=== PATIENT | female | born 1940 | race Caucasian/White ===

== ENCOUNTER 2022-01-25 11:52 | Emergency (ER) | payer OTHER ==
[2022-01-25 12:29] LABS: Absolute Lymphocytes (CBC) 1.6 K/uL (0.7-4.9); Hematocrit 42.7 % (36.0-45.0); Lymphocytes % 16.1 % (15.3-44.8); MPV 8.1 fL (7.6-11.3); RBC Red Blood Cell Count 5.01 M/uL (3.86-4.86)
[2022-01-25 12:38] LABS: Protime INR 0.95
[2022-01-25 12:47] LABS: Albumin 3.2 g/dL (3.4-5.0); Bilirubin Direct 0.2 mg/dL (0-0.2); Bilirubin Total 0.5 mg/dL (0.2-1.0); CKMB Creatine Kinase MB 2.8 ng/mL (1.0-3.6); Protein, Total 7.4 g/dL (6.4-8.2)
[2022-01-25 12:48] LABS: Magnesium 2.1 mg/dL (1.8-2.4); Potassium 3.7 mmol/L (3.5-5.1)
[2022-01-25] MEDS ORDERED: IPRATROPIUM BROM 0.5MG/2.5ML ONE (13:04)
[2022-01-25] MEDS ORDERED: METHYLPREDNISOLONE 125 MG INJ ONE (13:04)
[2022-01-25] MEDS ORDERED: NA CHLORIDE 0.9% 250 ML ONE (13:04)
[2022-01-25] MEDS ORDERED: ALBUTEROL 2.5 MG/3 ML NEB SOL ONE (13:04)
[2022-01-25] MEDS ORDERED: AZITHROMYCIN 500 MG INJ IVPB ONE (13:04)
--- NOTE | 2022-01-25 13:04 | RAD REPORT ---
EXAM DESCRIPTION: RAD - Chest Single View - 01/25/2022 12:54 pm CLINICAL HISTORY: CONGESTION Chest pain. COMPARISON: No comparisons FINDINGS: Portable technique limits examination quality. Extensive bilateral pulmonary opacities are present which may represent pneumonia or pulmonary edema. The heart is mildly enlarged in size. The left humeral prosthesis.
[2022-01-25 13:33] LABS: SARS-COV-2 RT PCR NEGATIVE (NEGATIVE)
[2022-01-25] MEDS ORDERED: FUROSEMIDE 40 MG/4 ML VIAL ONE (14:05)
--- NOTE | 2022-01-25 14:26 | EDPHYS ---
Physician Documentation [facility] Name: Teresita Holm Age: 81 yrs Sex: Female : 1940 Arrival Date: 01/25/2022 Time: 11:55 Bed 4 Private MD: ED Physician Prince Montoya HPI: 01/25 12:46 This 81 yrs old Female presents to ER via Wheelchair with complaints of Low O2. ma2 12:46 81 years old female history of COPD on home oxygen take steroid daily for the last ma2 week, patient also has CHF mild, presents with shortness of breath for 2 months, patient said that her shortness of breath has not changed or gotten worse however daughter advised her to come here because her saturation has been in the low 80s while she is on oxygen. Of note patient also has cough with clear sputum production for the last 2 months, no chest pain or fever, no lower extremity edema. Historical: - Home Meds: 12:11 Metoprolol Tartrate Oral [Active]; albuterol sulfate Oral [Active]; vg1 losartan-hydrochlorothiazide oral [Active]; Potassium Chloride Oral [Active]; atorvastatin oral [Active]; Isosorbide Dinitrate Oral [Active]; - PMHx: 12:11 Congestive heart failure; Myocardial infarction; Chronic obstructive lung disease; vg1 Osteoporosis; - Immunization history:: Client reports receiving the 2nd dose of the Covid vaccine. - Social history:: Smoking status: Patient/guardian denies using tobacco, the patient reports quitting approximately 33 years ago. - Family history:: not pertinent. ROS: 12:46 Constitutional: Negative for fever, chills, and weight loss. ma2 12:46 All other systems are negative. Exam: 12:46 Constitutional: This is a well developed, well nourished patient who is awake, alert, ma2 and in no acute distress. Head/Face: Normocephalic, atraumatic. Eyes: Pupils equal round and reactive to light, extra-ocular motions intact. Lids and lashes normal. Conjunctiva and sclera are non-icteric and not injected. Cornea within normal limits. Periorbital areas with no swelling, redness, or edema. ENT: Nares patent. No nasal discharge, no septal abnormalities noted. Tympanic membranes are normal and external auditory canals are clear. Oropharynx with no redness, swelling, or masses, exudates, or evidence of obstruction, uvula midline. Mucous membranes moist. Neck: Trachea midline, no thyromegaly or masses palpated, and no cervical lymphadenopathy. Supple, full range of motion without nuchal rigidity, or vertebral point tenderness. No Meningismus. Chest/axilla: Normal chest wall appearance and motion. Nontender with no deformity. No lesions are appreciated. Cardiovascular: Regular rate and rhythm with a normal S1 and S2. No gallops, murmurs, or rubs. Normal PMI, no JVD. No pulse deficits. Respiratory: Saturation was mid 80s on nasal cannula, patient has expiratory wheezes and rails basal bilaterally, wheeze or expiratory, there is no rhonchi's, not using accessory muscles otherwise patient is comfortable. Patient is at facemask oxygen at this time Abdomen/GI: Soft, non-tender, with normal bowel sounds. No distension or tympany. No guarding or rebound. No evidence of tenderness throughout. Back: No spinal tenderness. No costovertebral tenderness. Full range of motion. Vital Signs: 12:09 BP 151 / 83; Pulse 94; Resp 20; Pulse Ox 98% on Non-rebreather mask; Weight 54.43 kg; vg1 Height 5 ft. 1 in. (154.94 cm); Pain 0/10; 13:00 BP 123 / 81; Pulse 88; Resp 25; Pulse Ox 100% on 10% Non-rebreather mask; ww 14:11 BP 110 / 62; Pulse 105; Resp 24; Pulse Ox 92% on 5 lpm NC; ww 12:09 Body Mass Index 22.67 (54.43 kg, 154.94 cm) vg1 MDM: 12:00 Patient medically screened. ma2 12:46 Differential diagnosis: Anemia Anxiety Reaction asthma, Bronchitis reactive airway ma2 disease. 14:23 Data reviewed: vital signs, nurses notes, lab test result(s), radiologic studies. ma2 Counseling: I had a detailed discussion with the patient and/or guardian regarding: the historical points, exam findings, and any diagnostic results supporting the discharge/admit diagnosis, the presence of at least one elevated blood pressure reading (>120/80) during this emergency department visit, lab results, radiology results, the need for further work-up and treatment in the hospital. Response to treatment: the patient's symptoms have markedly improved after treatment, Is a pneumonia bilateral on chest x-ray, and pulmonary edema, of note patient has history of CHF she is on home oxygen, at this time we were able to wean down oxygen to 5 L via nasal cannula, sats is 94% patient is breathing well not respiratory distress. However, she does not have a primary care doctor, given her age and pneumonia increased oxygen requirement I recommended admission, however patient declined she said that she lives close by and she is not back in her usual condition, she stated that she will take steroid antibiotics and she will return to ER for admission if her symptom does not improve or deteriorate. Counseled her about her risk of leaving despite her condition she may have increased CO2 she may get confused and pass out, she understand the risks that include worsening of her pneumonia, and , patient insist on leaving the hospital at this time. 01/25 12:01 Order name: BMP; Complete Time: 13:39 [facility] 01/25 12:01 Order name: Blood Culture Adult (2) [facility] 01/25 12:01 Order name: CBC with Diff; Complete Time: 13:39 [facility] 01/25 12:01 Order name: CPK; Complete Time: 13:39 [facility] 01/25 12:01 Order name: Ckmb; Complete Time: 13:39 [facility] 01/25 12:01 Order name: D-Dimer; Complete Time: 13:39 k[facility]01/25 12:01 Order name: Hepatic Function; Complete Time: 13:39 [facility] 01/25 12:01 Order name: Lipase; Complete Time: 13:39 [facility] 01/25 12:01 Order name: Magnesium; Complete Time: 13:39 [facility] 01/25 12:01 Order name: NT PRO-BNP; Complete Time: 13:39 [facility] 01/25 12:01 Order name: PT-INR; Complete Time: 13:39 [facility] 01/25 12:01 Order name: Ptt, Activated; Complete Time: 13:39 [facility] 01/25 12:01 Order name: XRAY CXR (1 view); Complete Time: 13:39 [facility] 01/25 12:01 Order name: EKG; Complete Time: 12:02 [facility] 01/25 12:01 Order name: Cardiac monitoring; Complete Time: 12:21 [facility] 01/25 12:01 Order name: EKG - Nurse/Tech; Complete Time: 12:33 [facility] 01/25 12:01 Order name: IV Saline Lock; Complete Time: 12:21 [facility] 01/25 12:01 Order name: Labs collected and sent; Complete Time: 12:21 [facility] 01/25 12:01 Order name: O2 Per Protocol; Complete Time: 12:21 [facility] 01/25 12:01 Order name: O2 Sat Monitoring; Complete Time: 12: [facility] 01/25 12:22 Order name: COVID-19/FLU A+B (Document "Date of Onset" if Symptomatic); Complete Time: ww 13:39 Administered Medications: 13:11 Drug: Albuterol 2.5 mg Route: Inhalation; jg9 13:11 Drug: AtroVENT (ipratropium) Aerosol 0.5 mg Route: Inhalation; jg9 13:17 Drug: SOLU-Medrol (methylPrednisoLONE) 125 mg Route: IVP; Site: right antecubital; jg9 14:06 Drug: Lasix (furosemide) 40 mg Route: IVP; Site: right antecubital; ww Disposition Summary: 01/25/22 14:25 Discharge Ordered Location: Home ma2 Condition: Stable ma2 Diagnosis - Other pneumonia, unspecified organism ma2 - Unspecified combined systolic (congestive) and diastolic (congestive) heart failure ma2 Followup: ma2 - With: Private Physician - When: Tomorrow - Reason: If symptoms return, Continuance of care Discharge Instructions: - Discharge Summary Sheet ma2 - Community-Acquired Pneumonia, Adult ma2 Forms: - Medication Reconciliation Form ma2 - Thank You Letter ma2 - Antibiotic Education ma2 - Prescription Opioid Use ma2 Prescriptions: - Tessalon Perles 100 mg Oral Capsule - take 1 capsule by ORAL route every 8 hours As needed; 15 capsule; Refills: 0, ma2 Product Selection Permitted - Zithromax Z-Cristhian 250 mg Oral Tablet - take 1 tablet by ORAL route as directed for 5 days Day 1 - take two (2) tablets ma2 one time. Day 2, 3, 4 , 5 take one (1) tablet once daily.; 6 tablet; Refills: 0, Product Selection Permitted - Medrol (Cristhian) 4 mg Oral Tablets, Dose Pack - take 1 tablet by ORAL route as directed - follow package instructions; 1 ma2 packet; Refills: 0, Product Selection Permitted Signatures: Dispatcher [employer] EDMS Prince Montoya MD MD ma2 Nahomi Hardy RN RN vg1 Tish Poe RN RN jg9 Leslie Whitley RN RN ww Corrections: (The following items were deleted from the chart) 12:47 12:02 Influenza Screen (A \\T\\ B)+BA.LAB.BRZ ordered. EDMS EDMS 12:48 12:02 SARS-COV-2 RT PCR+MOL.LAB.BRZ ordered. EDMS EDMS
--- NOTE | 2022-01-25 14:26 | ER ---
Nurse's Notes [facility] Name: Teresita Holm Age: 81 yrs Sex: Female : 1940 Arrival Date: 01/25/2022 Time: 11:55 Bed 4 Private MD: Diagnosis: Other pneumonia, unspecified organism;Unspecified combined systolic (congestive) and diastolic (congestive) heart failure Presentation: 01/25 12:09 Chief complaint: Patient's son or daughter states: SOB began ; In triage pt O2 vg1 was 83% on 4 L NC, pt uses O2 at home; pt denies chest pain. Coronavirus screen: Vaccine status: Patient reports receiving the 2nd dose of the covid vaccine. Client denies travel out of the [place] in the last 14 days. Client presents with at least one sign or symptom that may indicate coronavirus-19. Standard/surgical mask placed on the client. Ebola Screen: Patient denies exposure to infectious person. Patient denies travel to an Ebola-affected area in the 21 days before illness onset. Initial Sepsis Screen: Does the patient meet any 2 criteria? No. Patient's initial sepsis screen is negative. Does the patient have a suspected source of infection? No. Patient's initial sepsis screen is negative. Risk Assessment: Do you want to hurt yourself or someone else? Patient reports no desire to harm self or others. Onset of symptoms was January 23, 2022. 12:09 Method Of Arrival: Wheelchair vg1 12:09 Acuity: JULIET 2 vg1 Triage Assessment: 12:11 General: Appears in no apparent distress. uncomfortable, Behavior is calm, cooperative. vg1 Pain: Denies pain. Respiratory: Reports shortness of breath at rest on exertion Airway is patent Respiratory effort is even, unlabored. Historical: - Home Meds: 12:11 Metoprolol Tartrate Oral [Active]; albuterol sulfate Oral [Active]; vg1 losartan-hydrochlorothiazide oral [Active]; Potassium Chloride Oral [Active]; atorvastatin oral [Active]; Isosorbide Dinitrate Oral [Active]; - PMHx: 12:11 Congestive heart failure; Myocardial infarction; Chronic obstructive lung disease; vg1 Osteoporosis; - Immunization history:: Client reports receiving the 2nd dose of the Covid vaccine. - Social history:: Smoking status: Patient/guardian denies using tobacco, the patient reports quitting approximately 33 years ago. - Family history:: not pertinent. Screenin:00 Abuse screen: Denies threats or abuse. Denies injuries from another. Nutritional ww screening: No deficits noted. Tuberculosis screening: No symptoms or risk factors identified. Fall Risk None identified. Assessment: 12:20 General: Appears uncomfortable, Behavior is calm, cooperative. Pain: Denies pain. ww Neuro: Level of Consciousness is awake, alert, obeys commands, Oriented to person, place, time, situation, Moves all extremities. Speech is normal. Cardiovascular: Patient's skin is warm and dry. Rhythm is regular Chest pain is denied. Respiratory: Airway is patent Respiratory effort is labored, Parent/caregiver reports the patient having shortness of breath at rest on exertion. GI: No signs and/or symptoms were reported involving the gastrointestinal system. Abdomen is non-distended. : Derm: No signs and/or symptoms reported regarding the dermatologic system. Skin is thin. 13:30 Reassessment: Patient appears in no apparent distress at this time. Patient and/or ww family updated on plan of care and expected duration. Pain level reassessed. Patient is alert, oriented x 3, equal unlabored respirations, skin warm/dry/pink. Patient states feeling better. 14:10 Reassessment: Patient appears in no apparent distress at this time. No changes from ww previously documented assessment. Patient and/or family updated on plan of care and expected duration. Pain level reassessed. Patient is alert, oriented x 3, equal unlabored respirations, skin warm/dry/pink. Dr. Montoya at bedside explaining results and answering family and patients questions. Vital Signs: 12:09 BP 151 / 83; Pulse 94; Resp 20; Pulse Ox 98% on Non-rebreather mask; Weight 54.43 kg; vg1 Height 5 ft. 1 in. (154.94 cm); Pain 0/10; 13:00 BP 123 / 81; Pulse 88; Resp 25; Pulse Ox 100% on 10% Non-rebreather mask; ww 14:11 BP 110 / 62; Pulse 105; Resp 24; Pulse Ox 92% on 5 lpm NC; ww 12:09 Body Mass Index 22.67 (54.43 kg, 154.94 cm) 1 ED Course: 11:55 Patient arrived in ED. rg4 12:00 Prince Montoya MD is Attending Physician. mary 12:11 Leslie Whitley, RN is Primary Nurse. ww 12:11 Triage completed. vg1 12:11 Arm band placed on. vg1 12:40 Inserted saline lock: 20 gauge in right antecubital area, using aseptic technique. ww Blood collected. 12:56 XRAY CXR (1 view) In Process Unspecified. EDMS 13:00 Patient has correct armband on for positive identification. Bed in low position. Call ww light in reach. Side rails up X2. Adult w/ patient. supervisor filling and packing on. Pulse ox on. NIBP on. 13:00 No provider procedures requiring assistance completed. ww 14:42 IV discontinued, bleeding controlled, No redness/swelling at site. Pressure dressing ww applied. Administered Medications: 13:11 Drug: Albuterol 2.5 mg Route: Inhalation; jg9 13:11 Drug: AtroVENT (ipratropium) Aerosol 0.5 mg Route: Inhalation; jg9 13:17 Drug: SOLU-Medrol (methylPrednisoLONE) 125 mg Route: IVP; Site: right antecubital; jg9 14:06 Drug: Lasix (furosemide) 40 mg Route: IVP; Site: right antecubital; ww Outcome: 14:25 Discharge ordered by . ma2 14:42 Discharged to home via wheelchair, with family. ww 14:42 Condition: stable 14:42 Discharge instructions given to patient, family, Instructed on discharge instructions, follow up and referral plans. medication usage, safety practices, Demonstrated understanding of instructions, follow-up care, medications, Prescriptions given X 3. 14:42 Patient left the ED. ww Signatures: Dispatcher [employer] Valencia Velasco rg4 Prince Montoya MD MD ma2 Garcia, Victoria, RN RN vg1 Tish Poe RN RN jg9 Leslie Whitley, RN RN ww
[2022-01-25 14:52] VITALS: BP 110/62; O2SAT 92
== END 2022-01-25 14:42 | disposition home or self-care (01) ==
LOC: ER 11:52
DX: J18.8 Other pneumonia, unspecified organism (principal); I50.40 Unspecified combined systolic (congestive) and diastolic (congestive) heart failure; J44.9 Chronic obstructive pulmonary disease, unspecified; I25.2 Old myocardial infarction; Z99.81 Dependence on supplemental oxygen; Z20.822 Contact with and (suspected) exposure to COVID-19
CPT/HCPCS: 93005 ×2; 87040 ×2; 85025; 80048; 36415; 83735; 82550; 85610; 85379; 80076; 85730; 82553; 83690; 83880; 0240U; 71045; 96375; 96374; 99285; J1940; J0456; J7050; J2930

== ENCOUNTER 2022-03-05 19:49 | Emergency (ER) | payer OTHER ==
--- NOTE | 2022-03-05 22:54 | RAD REPORT ---
EXAM DESCRIPTION: RAD - Ribs Left - 03/05/2022 10:47 pm CLINICAL HISTORY: posterior left upper ribs COMPARISON: Chest Single View dated 01/25/2022; Sacrum And Coccyx dated 03/05/2022 FINDINGS/IMPRESSION: No fracture of the sacrum or coccyx is seen. Probably remote right superior inf erior pubic rami fractures. Cephalomedullary screws are present in both hips.
--- NOTE | 2022-03-05 22:55 | RAD REPORT ---
EXAM DESCRIPTION: RAD - Sacrum And Coccyx - 03/05/2022 10:46 pm CLINICAL HISTORY: LOWER BACK PAIN COMPARISON: Ribs Left dated 03/05/2022; Chest Single View dated 01/25/2022 FINDINGS/IMPRESSION: Remote left seventh and eighth rib fractures. No acute rib fractures identified . No pneumothorax. Pulmonary opacities likely related to chronic interstitial lung changes no acute p neumonia or edema would be difficult to exclude. Left shoulder arthroplasty.
--- NOTE | 2022-03-05 23:38 | EDPHYS ---
Physician Documentation [facility] Name: Teresita Holm Age: 81 yrs Sex: Female : 1940 Arrival Date: 03/05/2022 Time: 20:00 Bed 9 Private MD: ED Physician Reddy Simmons HPI: 03/05 21:53 This 81 yrs old Female presents to ER via EMS with complaints of Fall Injury - Fall pm1 injury - tailbone pain. 21:53 Details of fall: The patient fell from an upright position, while standing. Onset: The pm1 symptoms/episode began/occurred today. Associated injuries: The patient sustained coccyx, left scapular area and left subscapular area. Severity of symptoms: in the emergency department the symptoms are unchanged. The patient has experienced similar episodes in the past, Patient with pelvis fracture in the past from fall. The patient has not recently seen a physician. 81-year-old patient presents in ER with complaints of fall and pain to her tailbone and left scapular/subscapular area. Patient was standing in tripped falling backwards, patient's fall was slowed down by her son behind her, unfortunately his elbow hit against her left shoulder blade. No headache, head injury, neck pain, LOC. Historical: - Allergies: 20:08 No Known Allergies; ld1 - PMHx: 20:08 Chronic obstructive lung disease; Congestive heart failure; Myocardial infarction; ld1 Osteoporosis; - PSHx: 20:08 None; ld1 - Immunization history:: Adult Immunizations up to date, Client reports receiving the 2nd dose of the Covid vaccine. - Social history:: Smoking status: Patient/guardian denies using tobacco, Patient/guardian denies using alcohol. ROS: 21:53 Constitutional: Negative for fever, chills, and weight loss, Cardiovascular: Negative pm1 for chest pain, palpitations, and edema, Respiratory: Negative for shortness of breath, cough, wheezing, and pleuritic chest pain, Abdomen/GI: Negative for abdominal pain, nausea, vomiting, diarrhea, and constipation. 21:53 MS/Extremity: Negative for injury and deformity, Skin: Negative for injury, rash, and discoloration, Neuro: Negative for headache, weakness, numbness, tingling, and seizure. 21:53 Back: Positive for of the left scapular area, left subscapular area and sacrum pain. 21:53 All other systems are negative. Exam: 21:53 Constitutional: This is a well developed, well nourished patient who is awake, alert, pm1 and in no acute distress. Head/Face: Normocephalic, atraumatic. 21:53 Back: No spinal tenderness. No costovertebral tenderness. Full range of motion. Skin: Warm, dry with normal turgor. Normal color with no rashes, no lesions, and no evidence of cellulitis. MS/ Extremity: Pulses equal, no cyanosis. Neurovascular intact. Full, normal range of motion. 21:53 Eyes: Exam is negative for acute changes. 21:53 Cardiovascular: Exam negative for acute changes, Rate: normal, Rhythm: regular, Pulses: no pulse deficits are appreciated, Heart sounds: normal. 21:53 Respiratory: Exam negative for acute changes, respiratory distress, shortness of breath. 21:53 Neuro: Exam negative for acute changes, Orientation: is normal, Mentation: is normal, Motor: is normal, moves all fours. Vital Signs: 20:06 BP 130 / 84; Pulse 101; Resp 22; Temp 98.1(TE); Pulse Ox 98% on 3 lpm NC; Weight 54.43 ld1 kg; Height 5 ft. 2 in. (157.48 cm); Pain 8/10; 22:45 BP 177 / 97; Pulse 62; Resp 23; Pulse Ox 98% on NC; Pain 5/10; fu 23:15 BP 127 / 97; Pulse 92; Resp 23; Temp 97.9(O); Pulse Ox 98% on 4 lpm NC; fu 23:45 BP 117 / 84; Pulse 63; Resp 24; Pulse Ox 96% on 4 lpm NC; fu 20:06 Body Mass Index 21.95 (54.43 kg, 157.48 cm) ld1 MDM: 21:53 Patient medically screened. pm1 23:35 Data reviewed: vital signs. Data interpreted: Pulse oximetry: on room air is 98 %. pm1 Interpretation: normal. Counseling: I had a detailed discussion with the patient and/or guardian regarding: the historical points, exam findings, and any diagnostic results supporting the discharge/admit diagnosis, radiology results, the need for outpatient follow up, to return to the emergency department if symptoms worsen or persist or if there are any questions or concerns that arise at home. 03/05 21:47 Order name: Sacrum And Coccyx XRAY; Complete Time: 23:18 pm1 03/05 21:52 Order name: Ribs Left XRAY; Complete Time: 23:18 pm1 Administered Medications: No medications were administered Disposition: 03/06 02:08 Co-signature as Attending Physician, Reddy Simmons MD. [email or web address] Disposition Summary: 03/05/22 23:37 Discharge Ordered Location: Home pm1 Problem: new pm1 Symptoms: have improved pm1 Condition: Stable pm1 Diagnosis - Contusion of lower back and pelvis - contusion to tailbone pm1 - Left rib contusion pm1 - Contusion of left back wall of thorax - rib contusion pm1 Followup: pm1 - With: Emergency Department - When: As needed - Reason: Worsening of condition Followup: pm1 - With: Private Physician - When: 2 - 3 days - Reason: Recheck today's complaints, Continuance of care, Re-evaluation by your physician Discharge Instructions: - Discharge Summary Sheet pm1 - Rib Contusion pm1 - Tailbone Injury pm1 Forms: - Medication Reconciliation Form pm1 - Thank You Letter pm1 - Antibiotic Education pm1 - Prescription Opioid Use pm1 Signatures: Dispatcher [employer] EDMS Celio Price, CONDITIONING YARD SUPERVISOR CONDITIONING YARD SUPERVISOR pm1 Reddy Simmons MD MD 7 Marsha Abernathy RN RN ld1
--- NOTE | 2022-03-05 23:38 | ER ---
Nurse's Notes [facility] Name: Teresita Holm Age: 81 yrs Sex: Female : 1940 Arrival Date: 03/05/2022 Time: 20:00 Bed 9 Private MD: Diagnosis: Contusion of lower back and pelvis-contusion to tailbone;Contusion of left back wall of thorax-rib contusion Presentation: 03/05 20:06 Chief complaint: Patient states: EMS toned out for fall from standing - C/O tailbone ld1 pain. Denies hitting head or LOC. Not on blood thinners. Coronavirus screen: At this time, the client does not indicate any symptoms associated with coronavirus-19. Ebola Screen: No symptoms or risks identified at this time. Initial Sepsis Screen: Does the patient meet any 2 criteria? No. Patient's initial sepsis screen is negative. Does the patient have a suspected source of infection? No. Patient's initial sepsis screen is negative. Risk Assessment: Do you want to hurt yourself or someone else? Patient reports no desire to harm self or others. Onset of symptoms was March 05, 2022. 20:06 Method Of Arrival: EMS: [facility] ld1 20:06 Acuity: JULIET 3 ld1 Triage Assessment: 20:08 General: Appears in no apparent distress. comfortable, Behavior is calm, cooperative, ld1 appropriate for age. Pain: Complains of pain in coccyx Pain does not radiate. Pain currently is 8 out of 10 on a pain scale. Quality of pain is described as throbbing. EENT: No signs and/or symptoms were reported regarding the EENT system. Neuro: Level of Consciousness is awake, alert, obeys commands, Oriented to person, place, time, situation. Cardiovascular: Capillary refill < 3 seconds Patient's skin is warm and dry. Respiratory: Airway is patent Respiratory effort is even, unlabored. Derm: Reports pain that is 8 out of 10 on a pain scale. Historical: - Allergies: 20:08 No Known Allergies; ld1 - PMHx: 20:08 Chronic obstructive lung disease; Congestive heart failure; Myocardial infarction; ld1 Osteoporosis; - PSHx: 20:08 None; ld1 - Immunization history:: Adult Immunizations up to date, Client reports receiving the 2nd dose of the Covid vaccine. - Social history:: Smoking status: Patient/guardian denies using tobacco, Patient/guardian denies using alcohol. Screenin:00 Abuse screen: Denies threats or abuse. Nutritional screening: No deficits noted. fu Tuberculosis screening: No symptoms or risk factors identified. Fall Risk Fall in past 12 months (25 points). No secondary diagnosis (0 pts). No IV (0 pts). Ambulatory Aid- Crutches/Cane/Walker (15 pts). Gait- Weak (10 pts.). Mental Status- Oriented to own ability (0 pts). Total Montano Fall Scale indicates High Risk Score (45 or more points). Fall prevention measures have been instituted. Side Rails Up X 2 Placed Close to Nursing Station Frequent Obs/Assessments Occuring Family Present and informed to notify staff if the need to leave the bedside As available patient and family educated on Fall Prevention Program and Strategies. Assessment: 21:00 General: Appears in no apparent distress. Behavior is calm, cooperative, appropriate fu for age. Pain: Complains of pain in coccyx and left shoulder Pain currently is 5 out of 10 on a pain scale. Neuro: Level of Consciousness is awake, alert, obeys commands, Oriented to person, place, time, Gm Video are Moves all extremities. Gait is unsteady, Speech is normal, Facial symmetry appears normal. Respiratory: Reports use home O2 at 4L NC Respiratory pattern is tachypnea. Derm: Bruising that is bilateral arm. Musculoskeletal: Reports pain in coccyx and left shoulder. 22:00 Reassessment: Patient is alert, oriented x 3, equal unlabored respirations, skin fu warm/dry/pink. patient assisted to bedside commode, patient voided. Vital Signs: 20:06 BP 130 / 84; Pulse 101; Resp 22; Temp 98.1(TE); Pulse Ox 98% on 3 lpm NC; Weight 54.43 ld1 kg; Height 5 ft. 2 in. (157.48 cm); Pain 8/10; 22:45 BP 177 / 97; Pulse 62; Resp 23; Pulse Ox 98% on NC; Pain 5/10; fu 23:15 BP 127 / 97; Pulse 92; Resp 23; Temp 97.9(O); Pulse Ox 98% on 4 lpm NC; fu 23:45 BP 117 / 84; Pulse 63; Resp 24; Pulse Ox 96% on 4 lpm NC; fu 20:06 Body Mass Index 21.95 (54.43 kg, 157.48 cm) ld1 ED Course: 20:00 Patient arrived in ED. mw2 20:08 Triage completed. ld1 20:08 Arm band placed on right wrist. ld1 21:45 Celio Price NP is PHCP. pm1 21:45 Reddy Simmons MD is Attending Physician. pm1 21:45 Juwan Mallory, RN is Primary Nurse. fu 22:45 Sacrum And Coccyx XRAY In Process Unspecified. EDMS 22:45 Ribs Left XRAY In Process Unspecified. EDMS 23:00 Patient has correct armband on for positive identification. Bed in low position. Call fu light in reach. Side rails up X2. Pulse ox on. NIBP on. 23:00 No provider procedures requiring assistance completed. Patient did not have IV access fu during this emergency room visit. Administered Medications: No medications were administered Medication: 23:00 VIS not applicable for this client. fu Outcome: 23:37 Discharge ordered by . pm1 06/02 00:12 Discharged to home via wheelchair, with family. fu Condition: good Discharge instructions given to patient, family, Instructed on discharge instructions, follow up and referral plans. Demonstrated understanding of instructions, follow-up care, Prescriptions given X 0 00:13 Patient left the ED. fu Signatures: Dispatcher [employer] EDCT Celio Price NP IT ARCHITECTURE CONSULTANT pm1 Juwan Mallory, JESUS MANUEL KEN Henok Reddy 2 Mrasha Abernathy RN RN ld1
[2022-03-06 00:23] VITALS: TEMP 97.9
[2022-03-06 00:24] VITALS: BP 117/84; O2SAT 96
== END 2022-03-06 00:13 | disposition home or self-care (01) ==
LOC: ER 19:49
DX: S30.0XXA Contusion of lower back and pelvis, initial encounter (principal); S20.222A Contusion of left back wall of thorax, initial encounter; W18.30XA Fall on same level, unspecified, initial encounter; I50.9 Heart failure, unspecified; I25.2 Old myocardial infarction
CPT/HCPCS: 72220; 99284

== ENCOUNTER 2022-06-11 11:51 | Inpatient (IN) | payer OTHER ==
[2022-06-11 12:35] LABS: Arterial Blood Carboxyhemoglob 1.8 % (0-1.5); Blood Gas Oxyhemoglobin 94.8 % (94-97); Blood O2 Saturation 97.6 % (92-98.5)
[2022-06-11 12:42] LABS: Protime INR 1.12
[2022-06-11 12:48] LABS: Absolute Lymphocytes (CBC) 0.7 K/uL (0.7-4.9); Hematocrit 41.4 % (36.0-45.0); Lymphocytes % 5.2 % (15.3-44.8); MCV 80.5 fL (80-100); MPV 8.1 fL (7.6-11.3); RBC Red Blood Cell Count 5.14 M/uL (3.86-4.86)
--- NOTE | 2022-06-11 12:53 | RAD REPORT ---
EXAM DESCRIPTION: RAD - Chest Single View - 06/11/2022 12:41 pm CLINICAL HISTORY: SOB Chest pain. COMPARISON: Chest Single View dated 01/25/2022; Thorax Wo Con dated 04/22/2022 FINDINGS: Portable technique limits examination quality. Extensive bilateral pulmonary opacities are present, likely chronic an likely chronic. The heart is u pper limit of normal in size. No displaced fractures. IMPRESSION: Stable chest since 01/25/2022.
[2022-06-11 12:57] LABS: Potassium 3.6 mmol/L (3.5-5.1); Troponin High Sensitivity 17.3 pg/mL (<58.9)
[2022-06-11] MEDS ORDERED: NA CHLORIDE 0.9% 250 ML ONE (13:31)
[2022-06-11] MEDS ORDERED: CEFTRIAXONE 1000 MG/VIAL ONE (13:31)
[2022-06-11] MEDS ORDERED: AZITHROMYCIN 500 MG INJ IVPB ONE (13:31)
[2022-06-11 13:43] LABS: Albumin 3.1 g/dL (3.4-5.0); Bilirubin Total 0.8 mg/dL (0.2-1.0); Potassium 3.9 mmol/L (3.5-5.1); Protein, Total 6.9 g/dL (6.4-8.2)
--- NOTE | 2022-06-11 13:56 | EDPHYS ---
Physician Documentation [facility] Name: Teresita Holm Age: 82 yrs Sex: Female : 1940 Arrival Date: 06/11/2022 Time: 11:59 Bed 8 Private MD: ED Physician Lester Ca HPI: 06/11 12:01 This 82 yrs old Female presents to ER via Unassigned with complaints of Shortness Of ms3 Breath. 12:01 82-year-old female with past medical history of COPD and congestive heart failure ms3 presents via [facility] for shortness of breath that has been worse for 1 week. EMS states on their arrival patient was 70% on room air. Patient denies pain. Patient denies alleviating or inciting factors. Patient states she took her albuterol prior to EMS arrival without relief.. Historical: - Allergies: 12:10 No Known Allergies; mb8 - PMHx: 12:10 Chronic obstructive lung disease; Congestive heart failure; Myocardial infarction; mb8 Osteoporosis; - Social history:: Smoking status: Patient/guardian denies using tobacco. ROS: 12:01 Constitutional: Negative for fever, and chills. Neck: Negative for injury, pain, and ms3 swelling, Cardiovascular: Negative for chest pain, and palpitations. 12:01 Abdomen/GI: Negative for abdominal pain, nausea, vomiting, diarrhea, and constipation, MS/Extremity: Negative for injury and deformity, Skin: Negative for injury, rash, and discoloration, Psych: Negative for depression, anxiety, suicide ideation, homicidal ideation, and hallucinations. 12:01 Respiratory: Positive for shortness of breath. 12:01 All other systems are negative. Exam: 12:01 Constitutional: This is a well developed, well nourished patient who is awake, alert, ms3 and in no acute distress. Head/Face: Normocephalic, atraumatic. Neck: Trachea midline, no cervical lymphadenopathy. Supple, full range of motion without nuchal rigidity, or vertebral point tenderness. No Meningismus. Chest/axilla: Normal chest wall appearance and motion. Nontender with no deformity. Cardiovascular: Regular rate and rhythm with a normal S1 and S2. No gallops, murmurs, or rubs. Normal PMI, no JVD. No pulse deficits. 12:01 Skin: Warm, dry with normal turgor. Normal color with no rashes, no lesions, and no evidence of cellulitis. MS/ Extremity: Pulses equal, no cyanosis. Neurovascular intact. Full, normal range of motion. Psych: Awake, alert, with orientation to person, place and time. Behavior, mood, and affect are within normal limits. 12:01 Respiratory: moderate respiratory distress is noted, Respirations: labored breathing, that is moderate, Breath sounds: rales, that are moderate, are located in both bases, Respiratory rate: 32 12:24 ECG was reviewed by the Attending Physician. ms3 Vital Signs: 12:00 BP 112 / 71; Pulse 121; Resp 32; Temp 99.2(A); Pulse Ox 82% on 6 lpm NC; mb8 12:16 BP 135 / 96; Pulse 109; Resp 28; Pulse Ox 96% on BiPAP; mb8 13:36 BP 135 / 66; Pulse 101; Resp 34; Pulse Ox 100% on BiPAP; mb8 MDM: 12:00 Patient medically screened. ms3 13:21 ED course: Patient has improved since placement on bipap. Will continue to monitor as ms3 labs return.. 13:53 Differential diagnosis: Anemia CHF exacerbation, Chronic Obstructive Pulmonary Disease ms3 Myocardial Infarction pneumonia, Sepsis. Data reviewed: vital signs, nurses notes, lab test result(s), radiologic studies. ED course: Discussed case with Dr Barnes. He would like 40 mg Lasix IV given and he will place admission orders and be by to see patient.. 06/11 12:00 Order name: Basic Metabolic Panel; Complete Time: 13:49 ms3 06/11 12:00 Order name: CBC with Diff; Complete Time: 13:49 ms3 06/11 12:00 Order name: Magnesium; Complete Time: 13:49 ms3 06/11 12:00 Order name: NT PRO-BNP; Complete Time: 13:49 ms3 06/11 12:00 Order name: PT-INR; Complete Time: 12:54 ms3 06/11 12:00 Order name: Troponin HS; Complete Time: 13:49 ms3 06/11 12:00 Order name: XRAY Chest (1 view); Complete Time: 12:54 ms3 06/11 12:33 Order name: ABG Arterial Blood Gas; Complete Time: 12:54 EDMS 06/11 12:55 Order name: Blood Culture Adult (2) ms3 06/11 12:55 Order name: CMP; Complete Time: 13:49 ms3 06/11 12:55 Order name: Lactate; Complete Time: 13:49 ms3 06/11 12:55 Order name: Ptt, Activated; Complete Time: 13:49 ms3 06/11 14:03 Order name: SARS RAPID bd 06/11 14:53 Order name: SARS-COV-2 Antigen Rapid EDMS 06/11 12:00 Order name: EKG; Complete Time: 12:01 ms3 06/11 12:00 Order name: Cardiac monitoring; Complete Time: 12:08 ms3 06/11 12:00 Order name: EKG - Nurse/Tech; Complete Time: 12:25 ms3 06/11 12:00 Order name: IV Saline Lock; Complete Time: 12:09 ms3 06/11 12:00 Order name: Labs collected and sent; Complete Time: 12:09 ms3 06/11 12:00 Order name: O2 Per Protocol; Complete Time: 12:09 ms3 06/11 12:00 Order name: O2 Sat Monitoring; Complete Time: 12:09 ms3 06/11 12:55 Order name: Accucheck; Complete Time: 13:01 ms3 06/11 12:55 Order name: IV Saline Lock - Large Bore; Complete Time: 13:01 ms3 EC:24 Rate is 108 beats/min. Rhythm is irregularly irregular. QRS Douglas is Normal. Clinical ms3 impression: Sinus tachcyardia with premature supraventricular complexes, non-specific ST and T wave changes. Interpreted by me. Reviewed by me. Administered Medications: 13:25 Drug: Rocephin (cefTRIAXone) 1 grams Route: IV; Rate: calculated rate; Site: right mb8 antecubital; 13:35 Follow up: Response: No adverse reaction; IV Status: Completed infusion mb8 13:34 Drug: AZITHromycin 500 mg Route: IVPB; Infused Over: 1 hrs; Site: left antecubital; mb8 14:40 Follow up: IV Status: Completed infusion mb8 14:09 Drug: Lasix (furosemide) 40 mg Route: IVP; Site: right antecubital; mb8 15:38 Follow up: Response: No adverse reaction mb8 Disposition: 13:53 Critical Care:. ms3 Disposition Summary: 06/11/22 13:55 Hospitalization Ordered Hospitalization Status: Inpatient Admission ms3 Provider: Han Barnes ms3 Location: Telemetry/[facility]Sur (Inpatient) ms3 Condition: Stable ms3 Problem: new ms3 Symptoms: have improved ms3 Bed/Room Type: Standard ms3 Room Assignment: 429(06/11/22 15:33) dw Diagnosis - Congestive heart failure ms3 - Shortness of breath ms3 - Pulmonary opacities ms3 - Tachycardia, unspecified ms3 - Tachypnea, not elsewhere classified ms3 - Acute respiratory failure ms3 Forms: - Medication Reconciliation Form ms3 - SBAR form ms3 Critical care time excluding procedures: 13:53 Critical care time: Bedside Care: 30 minutes, Consultation: 10 minutes, Family ms3 Intervention: 5 minutes. Total time: 45 minutes Signatures: Dispatcher [employer] Tonia Villegas RN RN dw Lester Ca DO DO ms3 Ricardo Lopez RN RN mb8 Corrections: (The following items were deleted from the chart) 15:33 13:55 ms3 dw
--- NOTE | 2022-06-11 13:56 | ER ---
Nurse's Notes [facility] Name: Teresita Holm Age: 82 yrs Sex: Female : 1940 Arrival Date: 06/11/2022 Time: 11:59 Bed 8 Private MD: Diagnosis: Congestive heart failure;Shortness of breath;Pulmonary opacities;Tachycardia, unspecified;Tachypnea, not elsewhere classified;Acute respiratory failure Presentation: 06/11 11:55 Chief complaint: Patient states: SOB for about 1 week, got worse this morning. Normally mb8 on O2 at home via NC 4lpm. EMS reports patient in the 70% range when they got to her. Coronavirus screen: Vaccine status: Patient reports receiving the 2nd dose of the covid vaccine. Ebola Screen: No symptoms or risks identified at this time. Initial Sepsis Screen: Does the patient meet any 2 criteria? RR > 20 per min. HR > 90 bpm. Yes Does the patient have a suspected source of infection? No. Patient's initial sepsis screen is negative. Risk Assessment: Do you want to hurt yourself or someone else? Patient reports no desire to harm self or others. Onset of symptoms is unknown. 11:55 Method Of Arrival: EMS mb8 11:55 Acuity: JULIET 2 mb8 Triage Assessment: 12:00 General: Appears distressed, uncomfortable, ill, Behavior is cooperative, anxious, mb8 restless. Respiratory: Reports shortness of breath air hunger labored breathing Airway is patent Trachea midline Respiratory effort is with nasal flaring, with retractions, Breath sounds with rales bilaterally. Onset: The symptoms/episode began/occurred 1 week, the patient has severe shortness of breath. Historical: - Allergies: 12:10 No Known Allergies; mb8 - PMHx: 12:10 Chronic obstructive lung disease; Congestive heart failure; Myocardial infarction; mb8 Osteoporosis; - Social history:: Smoking status: Patient/guardian denies using tobacco. Screenin:14 Abuse screen: Denies threats or abuse. Denies injuries from another. Nutritional mb8 screening: No deficits noted. Tuberculosis screening: No symptoms or risk factors identified. Fall Risk No fall in past 12 months (0 pts). Secondary diagnosis (15 points) IV access (20 points). Ambulatory Aid- None/Bed Rest/Nurse Assist (0 pts). Gait- Weak (10 pts.). Mental Status- Oriented to own ability (0 pts). Total Montano Fall Scale indicates Low Risk Score (25-44 pts). Fall prevention measures have been instituted. Side Rails Up X 2 Family Present and informed to notify staff if they need to leave bedside As available Patient and Family Educated on Fall Prevention Program and strategies. Assessment: 12:00 Cardiovascular: Reports shortness of breath, Rhythm is sinus tachycardia. Respiratory: mb8 Respiratory effort is labored, with retractions, Respiratory pattern is tachypnea Breath sounds with rales bilaterally. 12:02 Respiratory: Patient placed on BiPAP:. mb8 13:35 Reassessment: Patient and/or family updated on plan of care and expected duration. Pain mb8 level reassessed. Patient is alert, oriented x 3, equal unlabored respirations, skin warm/dry/pink. Patient states feeling better. Pain: Denies pain. Vital Signs: 12:00 BP 112 / 71; Pulse 121; Resp 32; Temp 99.2(A); Pulse Ox 82% on 6 lpm NC; mb8 12:16 BP 135 / 96; Pulse 109; Resp 28; Pulse Ox 96% on BiPAP; mb8 13:36 BP 135 / 66; Pulse 101; Resp 34; Pulse Ox 100% on BiPAP; mb8 ED Course: 11:59 Patient arrived in ED. mb8 11:59 Ricardo Lopez, RN is Primary Nurse. mb8 11:59 Lester Ca DO is Attending Physician. ms3 12:00 Arm band placed on. mb8 12:00 Patient has correct armband on for positive identification. Placed in gown. Bed in low mb8 position. Call light in reach. Side rails up X2. Client placed on continuous cardiac and pulse oximetry monitoring. NIBP monitoring applied. monitor technician on. 12:05 Initial lab(s) drawn, by me, sent to lab. Inserted saline lock: 20 gauge in right mb8 antecubital area, using aseptic technique. Blood collected. 12:10 Triage completed. mb8 12:15 No provider procedures requiring assistance completed. mb8 12:42 XRAY Chest (1 view) In Process Unspecified. EDMS 13:54 Han Barnes MD is Hospitalizing Provider. ms3 16:48 Patient admitted, IV remains in place. mb8 Administered Medications: 13:25 Drug: Rocephin (cefTRIAXone) 1 grams Route: IV; Rate: calculated rate; Site: right mb8 antecubital; 13:35 Follow up: Response: No adverse reaction; IV Status: Completed infusion mb8 13:34 Drug: AZITHromycin 500 mg Route: IVPB; Infused Over: 1 hrs; Site: left antecubital; mb8 14:40 Follow up: IV Status: Completed infusion mb8 14:09 Drug: Lasix (furosemide) 40 mg Route: IVP; Site: right antecubital; mb8 15:38 Follow up: Response: No adverse reaction mb8 Medication: 12:14 VIS not applicable for this client. mb8 Intake: 15:46 IV: 250ml; Total: 250ml. mb8 Output: 15:46 Urine: 800ml; Total: 800ml. mb8 Outcome: 13:55 Decision to Hospitalize by Provider. ms3 16:47 Admitted to Med/surg accompanied by tech, family with patient, via stretcher, with mb8 oxygen, Report called to Anali 16:47 Condition: stable 16:49 Patient left the ED. mb8 Signatures: Dispatcher [employer] EDMS Lester Ca DO DO ms3 Ricardo Lopez, RN RN mb8 Corrections: (The following items were deleted from the chart) 12:14 12:13 Respiratory: Patient placed on BiPAP: mb8 mb8
[2022-06-11] MEDS ORDERED: FUROSEMIDE 40 MG/4 ML VIAL ONE (14:09)
[2022-06-11 14:53] LABS: SARS-CoV-2 Antigen Rapid Res Negative (Negative)
[2022-06-11] MEDS ORDERED: HYDRALAZINE HCL 20 MG/ML VIAL IV PRN (17:18)
--- NOTE | 2022-06-11 17:23 | P.HP ---
Certification for Inpatient Patient admitted to: Inpatient With expected LOS: >2 Midnights Patient will require the following post-hospital care: None Practitioner: I am a practitioner with admitting privileges, knowledge of patient current condition, hospital course, and medical plan of care. Services: Services provided to patient in accordance with Admission requirements found in Title 42 Section 412.3 of the Code of Federal Regulations Patient History Date of Service: 06/11/22 Primary Care Provider: Molly Reason for admission: CHf exacerbation History of Present Illness: Patient is a pleasant lady who recently started coming to the clinic. She has a history of chf, copd. The patient was sob and had a spo2 in the 60's range today. This is per her daughter who called the office. The patient was directed to the ER. EMS found her in the 70's range. She was started on a bipap. Given lasix and admitted. She is currently resting on the floors comfortable. She has no complaints Allergies No Known Allergies Allergy (Unverified 06/11/22 15:31) Review of Systems 10-point ROS is otherwise unremarkable General: Weakness Respiratory: Shortness of Breath Physical Examination - Vital Signs Temperature: 99.2 F Blood Pressure: 135/96 Pulse: 109 Respirations: 28 - Physical Exam General: Alert, In no apparent distress HEENT: Atraumatic, PERRLA, Mucous membr. moist/pink, EOMI, Sclerae nonicteric Neck: Supple, 2+ carotid pulse no bruit, No LAD, Without JVD or thyroid abnormality Respiratory: Clear to auscultation bilaterally, Normal air movement Cardiovascular: Regular rate/rhythm, Normal S1 S2 Gastrointestinal: Normal bowel sounds, No tenderness Musculoskeletal: No tenderness Integumentary: No rashes Neurological: Normal gait, Normal speech, Normal strength at 5/5 x4 extr, Normal tone, Normal affect Lymphatics: No axilla or inguinal lymphadenopathy - Studies Laboratory Data (last 24 hrs) 06/11/22 13:19: APTT 29.0 06/11/22 13:19: Sodium 141, Potassium 3.9, BUN 13, Creatinine 0.64, Glucose 143 H, Total Bilirubin 0.8, AST 18, ALT 20, Alkaline Phosphatase 72 06/11/22 12:31: PT 12.4, INR 1.12 06/11/22 12:31: WBC 13.90 H, Hgb 13.4, Hct 41.4, Plt Count 229 06/11/22 12:31: Sodium 139, Potassium 3.6, BUN 11, Creatinine 0.69, Glucose 147 H, Magnesium 2.0 Assessment and Plan - Problems (Diagnosis) (1) Acute exacerbation of CHF (congestive heart failure) Current Visit: Yes Status: Acute Plan: will order a echo. Continue lasix. Consult to Dr. Valentin Qualifiers: Heart failure type: unspecified Qualified Code(s): I50.9 - Heart failure, unspecified (2) COPD (chronic obstructive pulmonary disease) Current Visit: Yes Status: Acute Plan: stable at this time. Will use levalbuterol prn for the patient. Qualifiers: COPD type: chronic bronchitis Chronic bronchitis type: simple Qualified Code(s): J41.0 - Simple chronic bronchitis (3) Peripheral arterial disease Current Visit: Yes Status: Chronic Plan: Order a arterial doppler while in house. She will need to continue an out pat ient work up Discharge Plan: Home Plan to discharge in: 48 Hours - Advance Directives Does patient have a Living Will: No Does patient have a Durable POA for Healthcare: No - Code Status/Comfort Care Code Status Assessed: No Code Status: Full Code Physician Review: Patient Assessed, Agree with Above Assessment and Plan Critical Care: No Time Spent Managing Pts Care (In Minutes): 60
[2022-06-11] MEDS ORDERED: ACETAMINOPHEN 325 MG TABLET PO PRN (21:21)
[2022-06-11] MEDS: LEVALBUTEROL 0.63 MG/3 ML NEB NEB PRN (21:50)
[2022-06-11] MEDS ORDERED: ZOLPIDEM TARTRATE 5 MG TABLET PO ONE (21:53)
[2022-06-11] MEDS: GUAIFENESIN/DM 5 ML UCUP PO PRN (22:04)
[2022-06-12] MEDS: LEVALBUTEROL 0.63 MG/3 ML NEB NEB PRN (05:35)
[2022-06-12 06:57] LABS: Absolute Lymphocytes (CBC) 0.9 K/uL (0.7-4.9); Hematocrit 39.5 % (36.0-45.0); Lymphocytes % 10.7 % (15.3-44.8); MCV 80.5 fL (80-100); MPV 7.9 fL (7.6-11.3); RBC Red Blood Cell Count 4.91 M/uL (3.86-4.86)
[2022-06-12 07:22] LABS: Albumin 2.9 g/dL (3.4-5.0); Bilirubin Total 0.5 mg/dL (0.2-1.0); Potassium 3.6 mmol/L (3.5-5.1); Protein, Total 6.5 g/dL (6.4-8.2); Thyroid Stimulating Hormone 0.637 uIU/mL (0.360-3.740)
--- NOTE | 2022-06-12 08:08 | RAD REPORT ---
EXAM DESCRIPTION: US - Lower Extremity Arterial Bilat - 06/12/2022 5:23 am CLINICAL HISTORY: PAD COMPARISON: None FINDINGS: The common femoral, superficial femoral and popliteal arteries bilaterally demonstrate mon ophasic waveforms The posterior tibial and dorsalis pedis arteries demonstrate monophasic waveforms bilaterally. IMPRESSION: Monophasic waveforms throughout both lower extremities. This could reflect aorto-iliac o cclusive disease.
[2022-06-12] MEDS: FUROSEMIDE 40 MG/4 ML VIAL IV SCH (09:27)
[2022-06-12] MEDS: PANTOPRAZOLE 40MG TABLET PO SCH (09:28)
[2022-06-12] MEDS: GUAIFENESIN/DM 5 ML UCUP PO PRN (09:28)
--- NOTE | 2022-06-12 09:43 | P.PN ---
Subjective Date of Service: 06/12/22 Primary Care Provider: Molly Chief Complaint: CHf exacerbation Subjective: New changes (sob this morning) Review of Systems Respiratory: Shortness of Breath Physical Examination - Vital Signs Temperature: 97.5 F Blood Pressure: 109/61 Pulse: 85 Respirations: 24 Pulse Ox (%): 95 - Physical Exam General: Alert, Mild distress HEENT: Atraumatic, PERRLA, EOMI Neck: Supple, JVD not distended Respiratory: Clear to auscultation bilaterally, Normal air movement Cardiovascular: Regular rate/rhythm, Normal S1 S2 Gastrointestinal: Normal bowel sounds, No tenderness Musculoskeletal: No tenderness Integumentary: No rashes Neurological: Normal speech, Normal tone, Normal affect Lymphatics: No axilla or inguinal lymphadenopathy - Studies Laboratory Data (last 24 hrs) 06/11/22 13:19: APTT 29.0 06/11/22 13:19: Sodium 141, Potassium 3.9, BUN 13, Creatinine 0.64, Glucose 143 H, Total Bilirubin 0.8, AST 18, ALT 20, Alkaline Phosphatase 72 06/11/22 12:31: PT 12.4, INR 1.12 06/11/22 12:31: WBC 13.90 H, Hgb 13.4, Hct 41.4, Plt Count 229 06/11/22 12:31: Sodium 139, Potassium 3.6, BUN 11, Creatinine 0.69, Glucose 147 H, Magnesium 2.0 Assessment And Plan - Current Problems (Diagnosis) (1) Acute exacerbation of CHF (congestive heart failure) Current Visit: Yes Status: Acute Plan: will order a echo. Continue lasix. Consult to Dr. Valentin 06/12/22 Will give her lasix. Consider entresto on this patient. Qualifiers: Heart failure type: unspecified Qualified Code(s): I50.9 - Heart failure, unspecified (2) COPD (chronic obstructive pulmonary disease) Current Visit: Yes Status: Acute Plan: stable at this time. Will use levalbuterol prn for the patient. Qualifiers: COPD type: chronic bronchitis Chronic bronchitis type: simple Qualified Code(s): J41.0 - Simple chronic bronchitis (3) Peripheral arterial disease Current Visit: Yes Status: Chronic Plan: Order a arterial doppler while in house. She will need to continue an out patient work up Discharge Plan: Home Plan to discharge in: Greater than 2 days - Code Status/Comfort Care Code Status Assessed: No Physician Review: Patient Assessed, Agree with Above Assessment and Plan Critical Care: No Time Spent Managing PTS Care (In Minutes): 20
--- NOTE | 2022-06-12 10:54 | EKG ---
Test Date: 2022-06-11 Test Time: 12:24:40 [employer]: MEASUREMENT RESULTS: Intervals: Rate: 108 AK: 118 QRSD: 96 QT: 318 QTc: 426 [place]: P: 56 AK: 118 QRS: 45 T: 1 INTERPRETIVE STATEMENTS: Sinus tachycardia with occasional premature ventricular complexes Possible Left atrial enlargement Cannot rule out Anterior infarct, age undetermined ST & T wave abnormality, consider inferolateral ischemia Abnormal ECG Compared to ECG 01/25/2022 12:25:55 Ventricular premature complex(es) now present Sinus rhythm no longer present Atrial premature complex(es) no longer present Aberrant conduction of supraventricular beat(s) no longer present Myocardial infarct finding still present ST (T wave) deviation still present Possible ischemia still present Electronically Signed On 06-12-22 10:50:28 CDT by Sheldon Valentin
--- NOTE | 2022-06-12 11:49 | ECHO ---
HEIGHT: 5 ft 1 in WEIGHT: 123 lb 0 oz DATE OF STUDY: 06/12/[address]: Han Barnes MD 2-DIMENSIONAL: YES M.MODE: YES DOPPLER: YES COLOR FLOW: YES TDS: NO PORTABLE: YES DEFINITY: NO BUBBLE STUDY: NO DIAGNOSIS: CHF EXACERBATION CARDIAC HISTORY: CATHERIZATION: YES SURGERY: NO PROSTHETIC VALVE: NO PACEMAKER: NO MEASUREMENTS (cm) DIASTOLIC (NORMALS) SYSTOLIC (NORMALS) IVSd 1.2 (0.6-1.2) LA Diam 3.2 (1.9-4.0) LVEF 34% LVIDd 5.4 (3.5-5.7) LVIDs 4.5 (2.0-3.5) %FS 16% LVPWd 1.3 (0.6-1.2) Ao Diam 2.9 (2.0-3.7) 2 DIMENSIONAL ASSESSMENT: RIGHT ATRIUM: NORMAL LEFT ATRIUM: NORMAL RIGHT VENTRICLE: NORMAL LEFT VENTRICLE: LEFT VENTRICULAR HYPERTROPHY TRICUSPID VALVE: NORMAL MITRAL VALVE: NORMAL PULMONIC VALVE: NORMAL AORTIC VALVE: NORMAL PERICARDIAL EFFUSION: NONE AORTIC ROOT: NORMAL LEFT VENTRICULAR WALL MOTION: SEVERE GLOBAL HYPOKINESIS. DOPPLER/COLOR FLOW: MILLD MITRAL AND TRICUSPID REGURGITATION. COMMENTS: SEVERE GLOBAL HYPOKINESIS. EJECTION FRACTION 30-35%. LEFT VENTRICULAR HYPERTROPHY. MILLD MITRAL, TRICUSPID REGURGITATION - NORMAL RIGHT VENTRICULAR SYSTOLIC PRESSURE. TECHNOLOGIST: ROSIE BRADEN
--- NOTE | 2022-06-12 13:09 | CON ---
Date of Consultation: 06/12/2022 Reason For Consultation: Congestive heart failure. History Of Present Illness: Ms. Holm is 82, just recently moved from [place], [place] to [place] . Has a history of COPD; congestive heart failure that is chronic, systolic, has had a history of CA D. She is status post stents in the past. Has not had any workup recently in [place], comes in [facility] shortness of breath, PND, orthopnea, pedal edema. No chest pain, nausea, vomiting, diaphoresis, p alpitation, syncope, fever, or chills. Past Medical History: As stated above. Allergies: NONE. Review of Systems: Negative. Social History: Negative. Family History: Noncontributory. Medications At Home: Include Aldactone, Plavix, and Protonix. Physical Examination: General: She appeared to be rather weak, but no acute distress. Vital Signs: Stable. Sinus rhythm. Afebrile. HEENT: Negative. Neck: Supple. No bruit, lymphadenopathy, JVD, or thyromegaly. Chest: Positive for rales at both bases. Cardiac: Revealed a regular rhythm and rate with an aortic sclerosis murmur. No gallops or rubs. Abdomen: Benign. Extremities: Revealed 1+ edema to the knee. Neurologic: She was nonfocal. Pulses were weak in the dorsalis pedis and posterior tibial. Skin: Dry and intact. Diagnostic Data: Showed a BNP of 4400, otherwise is pretty unremarkable. Arterial Doppler showed po ssible aortoiliac disease. Echocardiogram is pending. Impression And Plan: 1.Acute on chronic systolic congestive heart failure. 2.Chronic obstructive pulmonary disease. 3.Coronary artery disease, status post stents. 4.Peripheral arterial disease. I think Ms. Holm needs to be diuresed. We will need to watch her creatinine, I's and O's, and kelvin ly weight. Echocardiogram is pending. I think she needs to be on carvedilol, low dose Lasix, as wel l as Aldactone. Also, continue her Plavix, continue a Protonix. She can go home hopefully tomorrow. I will make arrangements for her to have a Lexiscan and then an abdominal angiogram with runoff. T he case was discussed with Dr. Barnes. She can probably go home tomorrow. NB/MODL Voice ID: [id number] Report ID: [id number]
[2022-06-12] MEDS: carvediloL 3.125 MG TAB PO SCH (17:07)
[2022-06-12] MEDS: ENOXAPARIN 30 MG/0.3 ML SQ SCH (17:08)
[2022-06-12] MEDS: ENSURE ENLIVE 237 ML CAN PO SCH (22:20)
[2022-06-13] MEDS: carvediloL 3.125 MG TAB PO SCH ×2 (05:53→17:36)
[2022-06-13 06:07] VITALS: BMI 21.8
[2022-06-13 06:10] LABS: Absolute Lymphocytes (CBC) 1.1 K/uL (0.7-4.9); Hematocrit 40.4 % (36.0-45.0); Lymphocytes % 9.7 % (15.3-44.8); MCV 81.6 fL (80-100); MPV 8.3 fL (7.6-11.3); RBC Red Blood Cell Count 4.95 M/uL (3.86-4.86)
[2022-06-13 06:33] LABS: Albumin 2.8 g/dL (3.4-5.0); Bilirubin Total 0.5 mg/dL (0.2-1.0); Potassium 3.4 mmol/L (3.5-5.1); Protein, Total 6.4 g/dL (6.4-8.2)
--- NOTE | 2022-06-13 08:44 | P.DS ---
Admission Date: 06/11/22 Discharge Date: 06/13/22 Primary Care Provider: Molly Disposition: ROUTINE DISCHARGE Discharge Condition: GOOD Reason for Admission: CHf exacerbation - Problems (1) Acute exacerbation of CHF (congestive heart failure) Current Visit: Yes Status: Acute Qualifiers: Heart failure type: unspecified Qualified Code(s): I50.9 - Heart failure, unspecified (2) COPD (chronic obstructive pulmonary disease) Current Visit: Yes Status: Acute Qualifiers: COPD type: chronic bronchitis Chronic bronchitis type: simple Qualified Code(s): J41.0 - Simple chronic bronchitis (3) Peripheral arterial disease Current Visit: Yes Status: Chronic Brief History of Present Illness: Patient is a pleasant lady who recently started coming to the clinic. She has a history of chf, copd. The patient was sob and had a spo2 in the 60's range tod ay. This is per her daughter who called the office. The patient was directed to the ER. EMS found her in the 70's range. She was started on a bipap. Given lasix and admitted. She is currently resting on the floors comfortable. She has no complaints Hospital Course: Patient was admitted and did well on lasix. She did have some sob and increased oxygen requirements. This was transient. She was seen by Dr. Valentin. she most likely has some vascular disease. He will be working her up as an outpatient Vital Signs/Physical Exam: Temp Pulse Resp BP Pulse Ox 98.1 F 88 18 119/76 90 L 06/13/22 08:00 06/13/22 08:00 06/13/22 08:00 06/13/22 08:00 06/13/22 08:00 General: Alert, In no apparent distress HEENT: Atraumatic, PERRLA, EOMI Neck: Supple, JVD not distended Respiratory: Clear to auscultation bilaterally, Normal air movement Cardiovascular: Regular rate/rhythm, Normal S1 S2 Gastrointestinal: Normal bowel sounds, No tenderness Musculoskeletal: No tenderness Integumentary: No rashes Neurological: Normal speech, Normal tone, Normal affect Lymphatics: No axilla or inguinal lymphadenopathy Laboratory Data at Discharge: WBC 11.40 K/uL (4.3-10.9) H D 06/13/22 05:46 Hgb 12.8 g/dL (12.0-15.0) 06/13/22 05:46 Hct 40.4 % (36.0-45.0) 06/13/22 05:46 Plt Count 250 K/uL (152-406) 06/13/22 05:46 PT 12.4 SECONDS (9.5-12.5) 06/11/22 12:31 INR 1.12 06/11/22 12:31 APTT 29.0 SECONDS (24.3-36.9) 06/11/22 13:19 Sodium 141 mmol/L (136-145) 06/13/22 05:46 Potassium 3.4 mmol/L (3.5-5.1) L 06/13/22 05:46 BUN 22 mg/dL (7-18) H 06/13/22 05:46 Creatinine 0.60 mg/dL (0.55-1.3) 06/13/22 05:46 Glucose 118 mg/dL (74-106) H 06/13/22 05:46 Magnesium 2.0 mg/dL (1.8-2.4) 06/11/22 12:31 Total Bilirubin 0.5 mg/dL (0.2-1.0) 06/13/22 05:46 AST 19 U/L (15-37) 06/13/22 05:46 ALT 22 U/L (12-78) 06/13/22 05:46 Alkaline Phosphatase 72 U/L (45-117) 06/13/22 05:46 Triglycerides 93 mg/dL (<150) 06/12/22 06:36 Cholesterol 137 mg/dL (<200) 06/12/22 06:36 HDL Cholesterol 38 mg/dL (40-60) L 06/12/22 06:36 Cholesterol/HDL Ratio 3.61 06/12/22 06:36 Home Medications: Cholecalciferol (Vitamin D3) [Vitamin D 5,000 IU Cap*] 1 tab PO DAILY 06/11/22 Clopidogrel Bisulfate [Plavix] 1 tab PO DAILY 06/11/22 Multivitamin [Multiple Vitamins] 1 tab PO DAILY 06/11/22 Pantoprazole Sodium [Protonix] 40 mg PO DAILY 06/11/22 Prednisone [Joanna] 5 mg PO DAILY 06/11/22 RX: Spironolactone 1 tab PO DAILY 06/11/22 RX: Carvedilol [Coreg] 3.125 mg PO BID 90 Days #180 tab 06/13/22 RX: Lisinopril [Zestril] 2.5 mg PO DAILY 90 Days #90 tab 06/13/22 New Medications: RX: Carvedilol [Coreg] 3.125 mg PO BID 90 Days #180 tab RX: Lisinopril [Zestril] 2.5 mg PO DAILY 90 Days #90 tab Diet: AHA Activity: Ad rahul Followup: Han Barnes MD [Primary Care Provider] - 1 Week Sheldon Valentin MD [ACTIVE - CAN ADMIT] - 1-2 Weeks Time spent managing pt's care (in minutes): 30
[2022-06-13] MEDS: lisinopriL 5 MG TAB PO SCH (09:00)
[2022-06-13] MEDS: ENSURE ENLIVE 237 ML CAN PO SCH ×2 (09:00→20:42)
[2022-06-13] MEDS: FUROSEMIDE 40 MG/4 ML VIAL IV SCH (10:36)
[2022-06-13] MEDS: VITAMIN D 5,000 UNIT CAP PO SCH (10:37)
[2022-06-13] MEDS: PANTOPRAZOLE 40MG TABLET PO SCH (10:37)
[2022-06-13] MEDS: MULTIVIT W/ MINERAL TAB PO SCH (10:37)
[2022-06-13] MEDS: CLOPIDOGREL 75 MG TABLET PO SCH (10:37)
[2022-06-13] MEDS: ENOXAPARIN 30 MG/0.3 ML SQ SCH (17:36)
--- NOTE | 2022-06-14 04:10 | PN ---
Date of Progress Note: 06/13/2022 Subjective: Seen at bedside. She appears to be slightly short of breath and tachycardic, not able t o speak full sentences due to that. No nausea, vomiting, diarrhea, dysuria, polyuria, or urinary urg ency. All other systems reviewed and are negative. Objective: Vital Signs: Revealed temperature of 98.1, heart rate running between 90 to 100, breathi ng at 20 to 22, blood pressure is 124/72, satting at 98% with 5 L and at 94% with 6 L. General: Pleasant elderly female, in no apparent distress. Head and Neck: Pupils are equal and reactive to light. Intact eye movements. No JVD. No cervical lymphadenopathy. Neck is supple. Thyroid is not enlarged. Lungs: Decreased breathing sounds bilaterally. No accessory muscle use or muscle retraction. Heart: Regular. No extra sounds. Abdomen: Soft, nontender. Bowel sounds positive. No organomegaly. No masses or hernia. No rigidi ty or rebound. Extremities: No clubbing, no cyanosis. Intact pulses. Neuro: Alert, awake, oriented x3. No acute focal deficits appreciated. Investigations: White blood cell count is 11.4, hemoglobin 12.8. BUN is 22, creatinine 0.6. Assessment And Recommendations: 1.Acute on chronic systolic congestive heart failure exacerbation, on diuretics. Continue current m anagement and care. We will monitor BUN, creatinine, electrolytes. Low-salt diet. 2.Chronic obstructive pulmonary disease, requiring home oxygen. 3.Peripheral vascular disease. She had a Doppler study that showed severe peripheral vascular disea se, monophasic waveform throughout the lower extremities. This patient will benefit from peripheral angiogram, which we will arrange for her to be done as an outpatient unless she stays throughout the weekend, recommend anti-platelet therapy. SR/MODL Voice ID: [id number] Report ID: [id number]
[2022-06-14 06:18] LABS: Absolute Lymphocytes (CBC) 1.4 K/uL (0.7-4.9); Hematocrit 40.4 % (36.0-45.0); Lymphocytes % 10.7 % (15.3-44.8); MCV 79.3 fL (80-100); MPV 8.1 fL (7.6-11.3); RBC Red Blood Cell Count 5.09 M/uL (3.86-4.86)
[2022-06-14 06:41] LABS: Albumin 2.8 g/dL (3.4-5.0); Bilirubin Total 0.6 mg/dL (0.2-1.0); Potassium 3.6 mmol/L (3.5-5.1); Protein, Total 6.5 g/dL (6.4-8.2)
[2022-06-14] MEDS: carvediloL 3.125 MG TAB PO SCH ×2 (07:28→17:16)
[2022-06-14 08:59] VITALS: O2SAT 97
[2022-06-14] MEDS: ENSURE ENLIVE 237 ML CAN PO SCH (09:00)
[2022-06-14] MEDS: FUROSEMIDE 40 MG/4 ML VIAL IV SCH (09:58)
[2022-06-14] MEDS: PANTOPRAZOLE 40MG TABLET PO SCH (09:58)
[2022-06-14] MEDS: lisinopriL 5 MG TAB PO SCH (09:58)
[2022-06-14] MEDS: MULTIVIT W/ MINERAL TAB PO SCH (09:58)
[2022-06-14] MEDS: CLOPIDOGREL 75 MG TABLET PO SCH (09:58)
[2022-06-14] MEDS: VITAMIN D 5,000 UNIT CAP PO SCH (09:58)
[2022-06-14 15:20] VITALS: TEMP 97.8
[2022-06-14] MEDS: ENOXAPARIN 30 MG/0.3 ML SQ SCH (17:16)
[2022-06-14 17:17] VITALS: BP 112/62
--- NOTE | 2022-06-14 18:07 | PN ---
Date of Progress Note: 06/14/2022 Subjective: Seen by bedside. She feels better today, less short of breath. Review of Systems: No chest pain. She has chronic shortness of breath, on home oxygen. No nausea, vomiting, diarrhea. All other systems reviewed and they were negative. Physical Examination: Vital Signs: Reviewed and were stable. Head and Neck: Pupils are equal, reactive to light. Intact eye movements. No JVD. No cervical lym phadenopathy. Neck is supple. Thyroid is not enlarged. Lungs: Decreased breathing sounds bilaterally. No accessory muscle use or muscle retraction. Heart: Irregular. No extra sounds. Abdomen: Soft, nontender. Bowel sounds positive. No organomegaly. No masses or hernia. No rigidi ty or rebound. Extremities: No clubbing or cyanosis. Intact pulses. Skin: No rash. Neurologic: Alert, awake. No acute focal deficits appreciated. Lymph Nodes: No cervical or axillary lymphadenopathy. Investigations: Labs were reviewed. Assessment And Recommendations: 1.Acute on chronic systolic heart failure exacerbation. She appears to be doing well with diuresis. Change Lasix to p.o. form and arrangements for discharge. 2.Severely depressed left ventricular ejection fraction with a borderline troponin. We will plan fo r a nuclear stress test as an outpatient. 3.Peripheral vascular disease that is significant. We will plan for peripheral angiogram in the zuleyka r future. /XIOMARA Voice ID: [id number] Report ID: [id number]
== END 2022-06-14 18:42 | disposition home or self-care (01) | DRG 291 ==
LOC: ER 11:51 → ERHOLD 13:56 → 4TH 15:53
PROVIDERS: ADMIT Internal Medicine; ATTEND Internal Medicine
PROC: 5A09357 Assistance with Respiratory Ventilation, Less than 24 Consecutive Hours, Continuous Positive Airway Pressure (ICD-10-PCS; principal; 2022-06-11)
DX: I11.0 Hypertensive heart disease with heart failure (principal); I50.23 Acute on chronic systolic (congestive) heart failure; I16.0 Hypertensive urgency; J41.0 Simple chronic bronchitis; I25.10 Atherosclerotic heart disease of native coronary artery without angina pectoris; I73.9 Peripheral vascular disease, unspecified; R00.0 Tachycardia, unspecified; I34.0 Nonrheumatic mitral (valve) insufficiency; I07.1 Rheumatic tricuspid insufficiency; R53.1 Weakness; M81.0 Age-related osteoporosis without current pathological fracture; I25.2 Old myocardial infarction; Z99.81 Dependence on supplemental oxygen; Z95.5 Presence of coronary angioplasty implant and graft; Z79.02 Long term (current) use of antithrombotics/antiplatelets; Z79.899 Other long term (current) drug therapy; Z20.822 Contact with and (suspected) exposure to COVID-19
CPT/HCPCS: 36415; 71045; 80048; 80053; 80061; 82805; 83605; 83735; 83880; 84443; 84484; 85025; 85610; 85730; 87040; 87070; 87205; 87811; 93005; 93306; 93925; 94660; 96365; 96375; 99285; J0456; J1650; J1940; J7050